=== PATIENT | male | born 2000 | race Hispanic/Latino ===

== ENCOUNTER 2024-04-26 01:04 | Emergency (ER) | payer OTHER ==
[~2024-04-26] VITALS: Ht 180.3 cm; Wt 88.5 kg
[2024-04-26 01:06] VITALS: BP 144/87; PULSE 91; RESP 16; TEMP 97.8
[2024-04-26] MEDS: NEOMY SULF/BACITRA/POLYMYXIN B 1 EACH PACKET TP STA (01:32)
[2024-04-26] MEDS: teTANUS/diphthERIA TOXOID [ADULT] 0.5 ML VIAL IM ONE (01:34)
== END 2024-04-26 01:40 | disposition home or self-care (01) ==
LOC: EDH 01:04
DX: S50.312A Abrasion of left elbow, initial encounter (principal); S20.312A Abrasion of left front wall of thorax, initial encounter; Z98.890 Other specified postprocedural states; W22.8XXA Striking against or struck by other objects, initial encounter; Y93.02 Activity, running; Y92.89 Other specified places as the place of occurrence of the external cause; Y99.8 Other external cause status
CPT/HCPCS: 90471; 90714